=== PATIENT | female | born 1975 | race Two or more races ===

== ENCOUNTER 2019-03-03 21:13 | Emergency (ER) | payer OTHER ==
[~2019-03-03] VITALS: Ht 162.6 cm; Wt 62.3 kg
[2019-03-03] MEDS ORDERED: ONDANSETRON 2MG/ML, 2ML ONE (21:48)
[2019-03-03] MEDS ORDERED: MORPHINE SULFATE 4 MG/ML, 1ML ONE (21:48)
--- NOTE | 2019-03-03 21:59 | NUR ---
PT AMBULATED STEADILY TO BATHROOM TO PROVIDE UA. PT APPEARS UNCOMFORTABLE, WITH FREQUENT MOANING. PT RELUCTANT TO ANSWER QUESTIONS OR MAKE EYE CONTACT WITH RN. FAMILY PRESENT. IV ESTABLISHED, LABS DRAWN. UA COLLECTED AND SENT. PT MEDCIATED PER EMAR FOR PAIN. PLACED ON 2L BY [place] FOR SUPPORT AND TRANSPORTED TO US WITH [facility]
[2019-03-03] MEDS ORDERED: ONDANSETRON 2MG/ML, 2ML IVPush ONE (22:00)
[2019-03-03] MEDS ORDERED: MORPHINE SULFATE 4 MG/ML, 1ML IVPush PRN (22:00)
[2019-03-03 22:01] LABS: BASOPHILS # (AUTO) 0.06 x10^3/uL (0-0.1); BASOPHILS % (AUTO) 0 % (0-1); EOSINOPHILS # (AUTO) 0.03 x10^3/uL (0-0.4); EOSINOPHILS % (AUTO) 0 % (1-7); LYMPHOCYTES # (AUTO) 1.51 x10^3/uL (1-3.4); LYMPHOCYTES % (AUTO) 9 % (22-44); MD NO; MEAN CORPUSCULAR HGB CONC 33.1 g/dL (32.4-35.8); MEAN CORPUSCULAR VOLUME 90.7 fL (80-100); MEAN PLATELET VOLUME 8.1 fL (7.4-10.4); MONOCYTES # (AUTO) 0.65 x10^3/uL (0.2-0.8); MONOCYTES % (AUTO) 4 % (2-9); NEUTROPHILS # (AUTO) 14.09 x10^3/uL (1.8-6.8); NEUTROPHILS % (AUTO) 86 % (42-75); PLATELET COUNT 346 x10^3/uL (130-400); RED BLOOD COUNT 4.63 x10^6/uL (3.82-5.3); RED CELL DISTRIBUTION WIDTH 13.6 % (9.6-15.2)
[2019-03-03 22:10] LABS: ALANINE AMINOTRANSFERASE 28 U/L (12-78); ALBUMIN 4.5 g/dL (3.4-5.0); ANION GAP 7 mmol/L (5-15); CALCIUM 8.5 mg/dL (8.5-10.1); CHLORIDE 110 mmol/L (98-107)
[2019-03-03 22:14] LABS: MICROSCOPIC NOT IND
[2019-03-03 22:15] LABS: ALKALINE PHOSPHATASE 79 U/L (45-117); BILIRUBIN,TOTAL 0.3 mg/dL (0.2-1.0); CREATININE 0.91 mg/dL (0.55-1.02); TOTAL PROTEIN 7.8 g/dL (6.4-8.2)
[2019-03-03 22:19] LABS: CULTURE INDICATED? NO
--- NOTE | 2019-03-03 22:54 | NUR ---
PT REPORTS IMPROVEMENT IN PAIN. PT CALMLY LAYING IN GURNEY. NAD. ERP AWARE, OKAY TO HOLD GI COCKTAIL.
[2019-03-03] MEDS ORDERED: MAALOX/HYOSCYAMINE/LIDOCAINE 45 ML BTL PO ONE (23:00)
[2019-03-03 23:08] VITALS: BP 115/60
--- NOTE | 2019-03-03 23:08 | NUR ---
DC EDUCATION PROVIDED BY RONALD BRAY IN [place]. PT DEMONSTRATES UNDERSTANDING. PT AMBUALTED STEADILY TO DC WITH RN AND FAMILY. FAMILY TO TRANSPORT PT HOME.
== END 2019-03-03 23:10 | disposition home or self-care (01) ==
LOC: ED 22:41
DX: K29.00 Acute gastritis without bleeding (principal)
CPT/HCPCS: 36415; 76700; 80053; 81003; 83690; 84703; 85025; 96374; 96375; 99284; J2405

== ENCOUNTER 2019-03-05 03:29 | Emergency (ER) | payer SELFPAY ==
[~2019-03-05] VITALS: Ht 160 cm; Wt 62.4 kg
--- NOTE | 2019-03-05 04:07 | NUR ---
PT HERE WITH OBRIEN AND ABD PAIN WITH NAUSEA. PT HAS BLURRED VISION. PT WAS SEEN HERE FRIDAY FOR THE SAME. VSS. PT IN NAD. CALL LIGHT IN REACH.
[2019-03-05] MEDS ORDERED: KETOROLAC 30 MG/1 ML IVPush ONE (04:30)
[2019-03-05] MEDS ORDERED: DIPHENHYDRAMINE 50 MG/ML, 1ML IVPush ONE (04:30)
[2019-03-05] MEDS ORDERED: METOCLOPRAMIDE 5 MG/ML, 2ML IVPush ONE (04:30)
[2019-03-05] MEDS ORDERED: DIPHENHYDRAMINE 50 MG/ML, 1ML ONE (04:33)
[2019-03-05] MEDS ORDERED: METOCLOPRAMIDE 5 MG/ML, 2ML ONE (04:33)
[2019-03-05] MEDS ORDERED: KETOROLAC 30 MG/1 ML ONE (04:33)
[2019-03-05 05:32] VITALS: BP 128/57
== END 2019-03-05 06:00 | disposition home or self-care (01) ==
LOC: ED 04:05
DX: R51 Headache (principal); R10.11 Right upper quadrant pain; R11.2 Nausea with vomiting, unspecified
CPT/HCPCS: 96374; 96375; 99283; J1200; J1885; J2765

== ENCOUNTER 2019-03-12 21:51 | Emergency (ER) | payer SELFPAY ==
[~2019-03-12] VITALS: Ht 162.6 cm; Wt 60.0 kg
--- NOTE | 2019-03-12 22:50 | NUR ---
PT BACK FROM CT--STATES ABD PAIN RESOLVED. NOW C/O OBRIEN. PT MOVING EXTREMITIES AND PC MAINTENANCE TECHNICIAN EQUAL BUT STATES SHE CAN NOT HOLD HER ARMS UP. PT HAS HX OF OBRIEN, BUT STATES THIS IS DIFFERENT. VSS. WILL ATTEMPT TO RM PT WHEN RM BECOMES AVAILABLE.
[2019-03-12 23:20] LABS: MEAN CORPUSCULAR HEMOGLOBIN 30.6 pg (27.0-34.8); MEAN CORPUSCULAR HGB CONC 34.1 g/dL (32.4-35.8); MEAN CORPUSCULAR VOLUME 89.8 fL (80-100); MEAN PLATELET VOLUME 8.2 fL (7.4-10.4); PLATELET COUNT 385 x10^3/uL (130-400); RED BLOOD COUNT 5.12 x10^6/uL (3.82-5.3); RED CELL DISTRIBUTION WIDTH 13.1 % (9.6-15.2)
[2019-03-12 23:25] LABS: ALBUMIN 4.8 g/dL (3.4-5.0); ANION GAP 9 mmol/L (5-15); CALCIUM 9.9 mg/dL (8.5-10.1); CHLORIDE 108 mmol/L (98-107)
[2019-03-12 23:30] LABS: ALANINE AMINOTRANSFERASE 28 U/L (12-78); ALKALINE PHOSPHATASE 79 U/L (45-117); BILIRUBIN,TOTAL 0.9 mg/dL (0.2-1.0); CREATININE 1.05 mg/dL (0.55-1.02); TOTAL PROTEIN 8.5 g/dL (6.4-8.2)
[2019-03-12 23:54] LABS: BASOPHILS # (AUTO) 0.05 x10^3/uL (0-0.1); BASOPHILS % (AUTO) 0 % (0-1); EOSINOPHILS # (AUTO) 0.01 x10^3/uL (0-0.4); EOSINOPHILS % (AUTO) 0 % (1-7); LYMPHOCYTES # (AUTO) 1.94 x10^3/uL (1-3.4); LYMPHOCYTES % (AUTO) 11 % (22-44); MD SCAN; MONOCYTES # (AUTO) 0.49 x10^3/uL (0.2-0.8); MONOCYTES % (AUTO) 3 % (2-9); NEUTROPHILS # (AUTO) 14.58 x10^3/uL (1.8-6.8); NEUTROPHILS % (AUTO) 85 % (42-75)
--- NOTE | 2019-03-13 00:07 | NUR ---
FIRST CONTACT W/ PT:PT PRESENTS TO ED C/O VOMITING TODAY AND SYCNOPAL EPISODE. PER SON, PT WAS HYPERVENTILATING FOR A COUPLE MINUTES PRIOR TO PASSING OUT. DENIES ANY FURTHER MEDICAL COMPLAINTS. MONITORING APPLIED. VSS. CALL LIGHT WITHIN REACH. FAMILY AT BEDSIDE. NO EMESIS NOTED IN ED.
--- NOTE | 2019-03-13 00:24 | NUR ---
PA AT BEDSIDE FOR ASSESSMENT.
[2019-03-13] MEDS ORDERED: ONDANSETRON ODT 4 MG ONE (00:35)
[2019-03-13] MEDS ORDERED: MAALOX/HYOSCYAMINE/LIDOCAINE 45 ML BTL ONE (00:35)
--- NOTE | 2019-03-13 00:44 | NUR ---
Pt medicated per mar. Awaiting US at this time.
--- NOTE | 2019-03-13 00:53 | NUR ---
Pt to US at this time.
[2019-03-13] MEDS ORDERED: MAALOX/HYOSCYAMINE/LIDOCAINE 45 ML BTL PO ONE (01:00)
[2019-03-13] MEDS ORDERED: ONDANSETRON ODT 4 MG PO ONE (01:00)
--- NOTE | 2019-03-13 01:17 | NUR ---
PT REPORT TO EUGENIA CARDENAS.
--- NOTE | 2019-03-13 02:22 | NUR ---
PT UP TO RESTROOM AT THIS TIME FOR UA.
--- NOTE | 2019-03-13 02:29 | NUR ---
UA OBTAINED AND TUBED TO LAB.
[2019-03-13] MEDS ORDERED: KETOROLAC 30 MG/1 ML IM ONE (02:30)
[2019-03-13 02:40] LABS: MICROSCOPIC NOT IND
[2019-03-13] MEDS ORDERED: METOCLOPRAMIDE 10MG TABLET ONE (02:43)
[2019-03-13] MEDS ORDERED: KETOROLAC 30 MG/1 ML ONE (02:43)
[2019-03-13] MEDS ORDERED: DIPHENHYDRAMINE 25 MG CAPSULE ONE (02:43)
[2019-03-13 02:47] LABS: CULTURE INDICATED? NO
--- NOTE | 2019-03-13 02:51 | NUR ---
PT MEDICATED PER MAR. POC DISCUSSED. PT AND SPOUSE DENY FURTHER NEEDS AT THIS TIME .
[2019-03-13 02:58] LABS: TROPONIN I < 0.015 ng/mL (0.000-0.045)
[2019-03-13] MEDS ORDERED: DIPHENHYDRAMINE 25 MG CAPSULE PO ONE (03:00)
[2019-03-13] MEDS ORDERED: METOCLOPRAMIDE 10MG TABLET PO ONE (03:00)
[2019-03-13 04:23] VITALS: BP 119/74
== END 2019-03-13 04:35 | disposition home or self-care (01) ==
LOC: ED 03-13 00:08
DX: K29.00 Acute gastritis without bleeding (principal); R51 Headache
CPT/HCPCS: 36415; 70450; 76700; 80053; 81003; 84484; 84703; 85025; 93005; 96372; 99284; J1885; Q0162; Q0163